=== PATIENT | male | born 1985 | race Caucasian/White ===

== ENCOUNTER 2018-04-05 20:58 | Emergency (ER) | payer OTHER ==
[~2018-04-05] VITALS: Ht 175.3 cm; Wt 120.2 kg
[2018-04-05 21:07] VITALS: BP 110/76
--- NOTE | 2018-04-05 21:09 | NUR ---
PT C/O N/V/D, FAMILY DX W/ FOOD POSIONING EARLIER TODAY HERE. DENIES AB PAIN. C/O SEEING SPOTS EARLIER. HX---NONE
--- NOTE | 2018-04-05 21:09 | NUR ---
PT AMBULATED TO BED 11
[2018-04-05] MEDS ORDERED: ONDANSETRON 4 MG ODT PO ONE (21:15)
[2018-04-05] MEDS ORDERED: DICYCLOMINE 20 MG/2 ML VIAL IM ONE (21:15)
[2018-04-05] MEDS ORDERED: LOPERAMIDE 2 MG CAP PO STA (21:33)
[2018-04-05] MEDS ORDERED: NACL 0.9% 1,000 ML IV ONE (21:35)
[2018-04-05] MEDS ORDERED: ONDANSETRON 4 MG/2 ML VIAL IVP ONE (21:35)
--- NOTE | 2018-04-05 23:00 | NUR ---
Patient discharged with v/s stable. Written and verbal after care instructions given and explained. Patient alert, oriented and verbalized understanding of instructions. Ambulatory with steady gait. All questions addressed prior to discharge. ID band removed. Patient advised to follow up with PMD. Rx of ZOFRAN ODT, BENTYL given. Patient educated on indication of medication including possible reaction and side effects. Opportunity to ask questions provided and answered. IV removed, catheter intact and site benign. Applied folded 4x4 gauze and tape to stop bleeding.
[2018-04-05 23:05] VITALS: BP 102/60
== END 2018-04-05 23:00 | disposition home or self-care (01) ==
LOC: MED 20:58
DX: R11.10 Vomiting, unspecified (principal); R19.7 Diarrhea, unspecified; R10.84 Generalized abdominal pain
CPT/HCPCS: 96361; 96372; 96374; 99283; J0500; J2405; J7030; Q0162

== ENCOUNTER 2018-05-16 15:02 | Emergency (ER) | payer OTHER ==
[~2018-05-16] VITALS: Ht 175.3 cm; Wt 116.1 kg
--- NOTE | 2018-05-16 15:06 | NUR ---
PT. W/C ASSISTED BY JONY RUSH TO BED AT THIS TIME
[2018-05-16 15:10] VITALS: BP 116/79
--- NOTE | 2018-05-16 15:18 | NUR ---
32/M BIB MOTHER WITH C/O RT ANKLE PAIN 10/21 S/P FELL/ROLL OVER HIS RT ANKLE AFTER GETTING OUT OF BED TODAY; -LOC, -N/V OR OTHER INJURIES, + PEDAL PULSE. Addendum: 05/16/18 at 1535 by MED1 right foot pain
--- NOTE | 2018-05-16 15:35 | NUR ---
x ray at bedside
--- NOTE | 2018-05-16 16:24 | NUR ---
Patient discharged with v/s stable. Written and verbal after care instructions given and explained. Patient alert, oriented and verbalized understanding of instructions. Crutches assistance by parent. All questions addressed prior to discharge. ID band removed. Patient advised to follow up with PMD. Rx of Motrin given. Patient educated on indication of medication including possible reaction and side effects. Opportunity to ask questions provided and answered.
[2018-05-16 16:25] VITALS: BP 120/73
== END 2018-05-16 16:24 | disposition home or self-care (01) ==
LOC: MED 15:02
DX: S93.401A Sprain of unspecified ligament of right ankle, initial encounter (principal); W22.8XXA Striking against or struck by other objects, initial encounter; Y93.89 Activity, other specified; Y92.009 Unspecified place in unspecified non-institutional (private) residence as the place of occurrence of the external cause; Y99.8 Other external cause status
CPT/HCPCS: 73610; 73630; 99283; Q0092

== ENCOUNTER 2018-11-09 18:56 | Emergency (ER) | payer OTHER ==
[~2018-11-09] VITALS: Ht 175.3 cm; Wt 122.5 kg
[2018-11-09 19:10] VITALS: BP 115/73
--- NOTE | 2018-11-09 19:13 | NUR ---
TO LOBBY A/W BED, AMBULATORY
--- NOTE | 2018-11-09 21:02 | NUR ---
pt ambulated to er bed 01
--- NOTE | 2018-11-09 21:03 | NUR ---
PT MOVED TO CHAIR D
--- NOTE | 2018-11-09 21:04 | NUR ---
Dr. Hancock examining patient.
--- NOTE | 2018-11-09 21:06 | NUR ---
PATIENT IS A 33 Y/O MALE WHO PRESENTS TO THE ED C/O BILATERAL LEG SWELLING. PER PT IT STARTED TODAY AND NOTICED IT NOW. PT DENIES PAIN. PT ALSO REPORTS BEING TIRED QUICKLY AND SLEEPY. NOTED SWELLING TO LOWER LEGS, BILATERAL PULSES INTACT. +1 SWELLING NOTED. PT DENIES CP, SOB, N/V/D. PT AWAKE AND ALERT, RR EVEN/UNLABORED. PT REPOSITIONED FOR COMFORT, BED IN LOWEST POSITION. ER MD DR. TREJO NOTIFIED. WILL CONTINUE TO MONITOR. DENIES [facility] NKA
--- NOTE | 2018-11-09 21:31 | NUR ---
Patient moved to bed 10.
--- NOTE | 2018-11-09 21:33 | NUR ---
PATIENT REPORT GIVEN TO ALEX BORGES. TRANSFER OF CARE AT THIS TIME.
[2018-11-09 21:48] LABS: BASOPHILS % (AUTO) 0.3 % (0.0-2.0); EOSINOPHILS # (AUTO) 0.1 K/uL (0-0.4); EOSINOPHILS % (AUTO) 1.6 % (0.0-4.0); HEMATOCRIT 41.8 % (36-52); HEMOGLOBIN 13.9 g/dL (12.0-18.0); LYMPHOCYTES # (AUTO) 2.7 K/uL (2.0-11.5); LYMPHOCYTES % (AUTO) 36.7 % (20.5-51.1); MEAN CORPUSCULAR HEMOGLOBIN 27 pg (27-31); MEAN CORPUSCULAR HGB CONC 33 g/dL (33-37); MEAN CORPUSCULAR VOLUME 81.4 fL (80-94); MONOCYTES # (AUTO) 0.6 K/uL (0.8-1.0); MONOCYTES % (AUTO) 8.6 % (1.7-9.3); NEUTROPHILS # (AUTO) 3.9 K/uL (1.8-7.7); NEUTROPHILS % (AUTO) 52.8 % (42.2-75.2); PLATELET COUNT (AUTO) 319 K/uL (140-450); RED BLOOD CELL COUNT(AUTO) 5.13 MIL/uL (4.20-6.10); RED CELL DISTRIBUTION WIDTH 13.9 % (11.6-13.7); WHITE BLOOD COUNT (AUTO) 7.5 K/uL (4.8-10.8)
[2018-11-09 21:51] LABS: ANION GAP 10.1 (8-16); CARBON DIOXIDE 29.6 mmol/L (21-32); CREATININE 0.9 mg/dL (0.7-1.3); POTASSIUM 3.7 mmol/L (3.5-5.1)
[2018-11-09 21:55] LABS: CHOL/HDL RATIO 4.9 (1-4.5)
[2018-11-09 21:58] LABS: ALBUMIN 3.8 g/dL (3.4-5.0); TOTAL BILIRUBIN 0.5 mg/dL (0.0-1.0)
--- NOTE | 2018-11-09 22:13 | NUR ---
Ultrasound at bedside.
[2018-11-09 23:12] VITALS: BP 128/82
--- NOTE | 2018-11-09 23:12 | NUR ---
DC PAPERS GIVEN TO PT. PT DC'D BY DR TREJO. INSTRUCTED TO F/U WITH PCP AND WHEN TO RETURN TO ER. ALL QUESTIONS ANSWERED.
== END 2018-11-09 23:12 | disposition home or self-care (01) ==
LOC: MED 18:56
DX: R53.81 Other malaise (principal); R06.02 Shortness of breath; M79.89 Other specified soft tissue disorders; R79.9 Abnormal finding of blood chemistry, unspecified
CPT/HCPCS: 36415; 71045; 80053; 80061; 83880; 84484; 85025; 85379; 93005; 93970; 99284; Q0092

== ENCOUNTER 2019-09-16 13:36 | Emergency (ER) | payer OTHER ==
[~2019-09-16] VITALS: Ht 175.3 cm; Wt 122.5 kg
[2019-09-16 13:40] VITALS: BP 131/79
--- NOTE | 2019-09-16 13:42 | NUR ---
Patient ambulated to bed 12. RN evaluating patient at bedside.
--- NOTE | 2019-09-16 13:49 | NUR ---
33 Y/O MALE FROM HOME C/O LOWER BACK PAIN X 2 DAYS. STATES THAT PAIN RADIATES TO LT TESTICLE OCCASSIONALLY. DENIES TRAUMA/INJURY TO LOWER BACK. DENIES URINARY SYMPTOMS. TOOK IBUPROFEN AT 1300 WITH PAIN RELIEF. 8/10 ACHING, CONSTANT PAIN. SITTING IN BED POSITIONED FOR COMFORT. VSS MEDHX: DENIES ALLERGIES: NKA
--- NOTE | 2019-09-16 14:08 | NUR ---
DR AYOUB AT BEDSIDE EXAMINING PT
[2019-09-16] MEDS ORDERED: LIDOCAINE MPF 1% 10 MG/ML VIAL INJ ONE (14:15)
--- NOTE | 2019-09-16 14:21 | NUR ---
LIDOCAINE PLACED AT BEDSIDE FOR USE BY DR AYOUB. ERMD MADE AWARE
--- NOTE | 2019-09-16 15:22 | NUR ---
PT REFUSED LICOCAINE INJECTION.
[2019-09-16 15:24] VITALS: BP 144/75
--- NOTE | 2019-09-16 15:25 | NUR ---
Patient discharged with v/s stable. Written and verbal after care instructions given and explained. Patient verbalized understanding. Ambulatory with steady gait. All questions addressed prior to discharge. Advised to follow up with PMD.
== END 2019-09-16 15:25 | disposition home or self-care (01) ==
LOC: MED 13:36
DX: M54.5 Low back pain (principal)
CPT/HCPCS: 99281; J2001

== ENCOUNTER 2019-12-17 09:43 | Emergency (ER) | payer OTHER ==
[~2019-12-17] VITALS: Ht 175.3 cm; Wt 122.5 kg
[2019-12-17 09:48] VITALS: BP 125/73
--- NOTE | 2019-12-17 09:57 | NUR ---
34 YO MALE CO LOWER BACK PAIN X3D. PT STATES THAT THE PAIN RADIATES TO LEG. 10/10 PAIN AT THIS TIME. TOOK IBUPROFEN LAST NIGHT AND WENT TO WORK. PT HAS NO PMH AND NO RX. PT IN BED POSITIONED FOR COMFORT.
[2019-12-17 10:45] VITALS: BP 125/73
== END 2019-12-17 10:46 | disposition home or self-care (01) ==
LOC: MED 09:43
DX: M54.41 Lumbago with sciatica, right side (principal)
CPT/HCPCS: 99283

== ENCOUNTER 2020-01-07 09:53 | Emergency (ER) | payer OTHER ==
[~2020-01-07] VITALS: Ht 175.3 cm; Wt 122.5 kg
[2020-01-07 09:55] VITALS: BP 133/77
[2020-01-07 10:39] VITALS: BP 129/75
== END 2020-01-07 10:39 | disposition home or self-care (01) ==
LOC: MED 09:53
DX: M54.32 Sciatica, left side (principal); R20.0 Anesthesia of skin; F17.200 Nicotine dependence, unspecified, uncomplicated
CPT/HCPCS: 99282

== ENCOUNTER 2021-04-25 11:41 | Emergency (ER) | payer OTHER ==
[~2021-04-25] VITALS: Ht 175.3 cm; Wt 120.2 kg
[2021-04-25 11:53] VITALS: BP 131/85
--- NOTE | 2021-04-25 11:58 | NUR ---
pt triaged and sent back to [place]
[2021-04-25 13:43] VITALS: BP 131/85
== END 2021-04-25 13:43 | disposition home or self-care (01) ==
LOC: MED 11:41
DX: N39.8 Other specified disorders of urinary system (principal); Z98.890 Other specified postprocedural states
CPT/HCPCS: 81002; 99282

== ENCOUNTER 2022-03-26 09:17 | Emergency (ER) | payer OTHER ==
[~2022-03-26] VITALS: Ht 175.3 cm; Wt 123.9 kg
[2022-03-26 09:25] VITALS: BP 139/85
--- NOTE | 2022-03-26 09:32 | NUR ---
LOLITA. HANDED ON URINE CUP.
--- NOTE | 2022-03-26 09:34 | NUR ---
C/O 6/10 URINARY BURNING SENSATION X 1 WEEK. SEEN AT [facility] LAST NIGHT FOR DYSURIA, URETHRAL STICTURE. PMH: CIRCUMCISION DEC 2020
--- NOTE | 2022-03-26 11:07 | NUR ---
PT AMB TO BED 8.
--- NOTE | 2022-03-26 11:33 | NUR ---
DR. CARVAJAL EVALUATING PATIENT AT BEDSIDE.
[2022-03-26] MEDS ORDERED: CLOT2CRE TP (11:42)
[2022-03-26] MEDS ORDERED: SULF-59 PO (11:42)
[2022-03-26 12:10] VITALS: BP 118/74
--- NOTE | 2022-03-26 12:10 | NUR ---
Patient discharged with v/s stable. Written and verbal after care instructions given. Patient alert, oriented and verbalized understanding of instructions. Ambulatory with steady gait. All questions addressed prior to discharge. ID band removed. Patient advised to follow up with PMD. Rx of CLOTRIMAZOLE AND BACTRIM DS given. Opportunity to ask questions provided and answered.
--- NOTE | 2022-03-26 12:40 | NUR ---
The patient's care was reviewed and supervised by Vanita Riley, RN, RN.
== END 2022-03-26 12:10 | disposition home or self-care (01) ==
LOC: MED 09:17
DX: N48.1 Balanitis (principal); Z79.899 Other long term (current) drug therapy; Z98.890 Other specified postprocedural states
CPT/HCPCS: 81002; 99283

== ENCOUNTER 2022-06-22 09:13 | Emergency (ER) | payer OTHER ==
[~2022-06-22] VITALS: Ht 175.3 cm; Wt 95.7 kg
[~2022-06-22 09:13] MED LIST: CLOT2CRE TP; SULF-59 PO
[2022-06-22 09:14] VITALS: BP 155/86
--- NOTE | 2022-06-22 09:23 | NUR ---
PT AMB TO BED 12.
--- NOTE | 2022-06-22 09:36 | NUR ---
36/M WALKED IN C/O COUGH, HEADACHE, SORE THROAT, AND BODY ACHE X2DAYS. PT REPORTS TESTING POSITIVE FOR COVID 2 WKS AGO AND NOW TESTED NEGATIVE THIS WEEK. AAO4, AMBULATORY, VITALS STABLE, NO ACUTE DISTRESS NOTED.
[2022-06-22] MEDS ORDERED: BPM/118S31 PO (10:33)
[2022-06-22] MEDS ORDERED: PRED50TA2 PO (10:33)
[2022-06-22] MEDS ORDERED: ALBU0.0912 IH (10:33)
== END 2022-06-22 10:35 | disposition home or self-care (01) ==
LOC: MED 09:13
DX: J06.9 Acute upper respiratory infection, unspecified (principal); Z79.899 Other long term (current) drug therapy; Z79.2 Long term (current) use of antibiotics
CPT/HCPCS: 71045; 99283; Q0092

== ENCOUNTER 2022-09-17 07:06 | Emergency (ER) | payer OTHER ==
[~2022-09-17] VITALS: Ht 175.3 cm; Wt 115.7 kg
[~2022-09-17 07:06] MED LIST changes: +ALBU0.0912 IH; +BPM/118S31 PO; +PRED50TA2 PO
[2022-09-17 07:12] VITALS: BP 133/91
[2022-09-17] MEDS ORDERED: FAMOTIDINE 20 MG TAB PO ONE (07:35)
[2022-09-17] MEDS ORDERED: EPINEPHrine 1 MG/ML AMP IM ONE (07:35)
[2022-09-17] MEDS ORDERED: predniSONE 20 MG TAB PO ONE (07:35)
--- NOTE | 2022-09-17 08:28 | NUR ---
PT C/O SWOLLEN TONGUE, NUMBNESS STARTED AT 4AM THIS AM. NO SOB. NAD.
--- NOTE | 2022-09-17 08:34 | NUR ---
NURSING ASSESSMENT COMPLETED, SEEN AND EVALUATED BY CHINMAY GARDNER COMPLETED.
[2022-09-17] MEDS ORDERED: PRED20TA5 PO (09:42)
--- NOTE | 2022-09-17 09:52 | NUR ---
The patient's care was reviewed and supervised by ELINA LOGAN RN.
[2022-09-17 09:53] VITALS: BP 125/69
--- NOTE | 2022-09-17 09:55 | NUR ---
Patient discharged with v/s stable. Written and verbal after care ANGIOEDEMA instructions given and explained. Patient verbalized understanding. Ambulatory with steady gait. All questions addressed prior to discharge. Advised to follow up with PMD. PT. WITH NO SWELLING NOTED. STABLE FOR D/C. NO SOB, NO ACUTE DISTRESS. AWAKE AND ALERT.
== END 2022-09-17 09:53 | disposition home or self-care (01) ==
LOC: MED 07:06
DX: K13.0 Diseases of lips (principal); T78.3XXA Angioneurotic edema, initial encounter; Z79.899 Other long term (current) drug therapy
CPT/HCPCS: 96372; 99283; J0171; J7512